=== PATIENT | female | born 1960 | race Caucasian/White ===

== ENCOUNTER 2023-10-05 18:45 | Emergency (ER) | payer MEDICAID ==
[2023-10-05] MEDS: Ondansetron 4 MG/2 ML SDV IVPUSH ONE (19:43)
[2023-10-05] MEDS: HYDROmorphone 1 MG/ML Syringe IVPUSH ONE (19:43)
[2023-10-05 19:44] LABS: BASOPHILS ABSOLUTE AUTO 0.03 K/uL (0.00-0.20); BASOPHILS PERCENT AUTO 0.3 % (0.0-1.0); EOSINOPHILS ABSOLUTE AUTO 0.07 K/uL (0.00-0.45); EOSINOPHILS PERCENT AUTO 0.7 % (0.0-6.0); HEMATOCRIT 44.9 % (37.0-47.0); HEMOGLOBIN 14.6 g/dL (12.0-16.0); IMMATURE GRAN ABSOLUTE AUTO 0.03 K/uL (0.00-0.05); IMMATURE GRAN PERCENT AUTO 0.3 % (0.0-0.4); LYMPHOCYTES PERCENT AUTO 26.9 % (24.0-44.0); MEAN CORPUSCULAR HGB CONC 32.5 g/dL (32.0-36.0); MEAN CORPUSCULAR VOLUME 89.3 fL (83.0-99.0); MEAN PLATELET VOLUME 10.9 fL (9.4-12.3); MONOCYTES ABSOLUTE AUTO 0.47 K/uL (0.00-0.80); MONOCYTES PERCENT AUTO 4.9 % (0.0-8.0); NEUTROPHILS ABSOLUTE AUTO 6.48 K/uL (1.80-7.70); NEUTROPHILS PERCENT AUTO 66.9 % (41.0-71.0); PLATELET COUNT,PLT 231 K/uL (150-400); RED BLOOD CELL COUNT 5.03 M/uL (4.10-5.30); WHITE BLOOD CELL COUNT,WBC 9.68 K/uL (3.9-11.3)
[2023-10-05 19:59] LABS: ALBUMIN 3.5 g/dL (3.4-5.0); BILIRUBIN TOTAL 0.5 mg/dL (0.2-1.0); CALCIUM 9.2 mg/dL (8.5-10.1); CARBON DIOXIDE,CO2 24.7 mmol/L (21.0-32.0); CREATININE 0.9 mg/dL (0.6-1.0); EST CRCL DRUG DOSING (CG) 49.53 mL/min; POTASSIUM,K 3.9 mmol/L (3.5-5.1); PROTEIN TOTAL,TP 7.1 g/dL (6.4-8.2)
[2023-10-05 20:26] LABS: LACTIC ACID 1.6 mmol/L (0.4-2.0)
[2023-10-05] MEDS: Naloxone 0.4 MG/ML SDV IVPUSH PRN (20:43)
== END 2023-10-05 21:25 | disposition home or self-care (01) ==
LOC: MW.ED 18:45
DX: K46.0 Unspecified abdominal hernia with obstruction, without gangrene (principal); R09.02 Hypoxemia; J44.9 Chronic obstructive pulmonary disease, unspecified; E11.9 Type 2 diabetes mellitus without complications; Z75.8 Other problems related to medical facilities and other health care; Z79.4 Long term (current) use of insulin; Z79.84 Long term (current) use of oral hypoglycemic drugs
CPT/HCPCS: 36415; 80053; 83605; 85025; 96374; 96375; 99284; J1170; J2310; J2405